=== PATIENT | female | born 1970 | race Caucasian/White ===

== ENCOUNTER 2017-06-02 19:24 | Emergency (ER) | payer OTHER ==
[~2017-06-02] VITALS: Ht 157.5 cm; Wt 100.0 kg
[2017-06-02] MEDS ORDERED: ALTACE 5MG5 MG PO (19:55)
[2017-06-02] MEDS ORDERED: TOPROL XL 50MG50 MG PO (19:55)
[2017-06-02] MEDS ORDERED: MEDI-FIRST ASP325 MG PO (19:56)
[2017-06-02] MEDS ORDERED: ANTIVERT12.5 M1 PO (19:56)
[2017-06-02] MEDS ORDERED: FISH OIL 1,001000 MG PO (19:56)
[2017-06-02] MEDS ORDERED: LIPITOR 40MG TA40 MG PO (19:57)
[2017-06-02] MEDS ORDERED: PANTOPRAZOLE SO40 MG PO (19:57)
[2017-06-02] MEDS ORDERED: D-1000 185 MG-11 TAB PO (19:57)
[2017-06-02] MEDS ORDERED: MULTIVITAMIN1 SGL PO (19:57)
[2017-06-02 21:02] VITALS: BP 142/93
== END 2017-06-02 21:02 | disposition home or self-care (01) ==
LOC: ED 19:24
DX: S60.222A Contusion of left hand, initial encounter (principal); S80.12XA Contusion of left lower leg, initial encounter; S30.0XXA Contusion of lower back and pelvis, initial encounter; V49.88XA Car occupant (driver) (passenger) injured in other specified transport accidents, initial encounter; Y92.415 Exit ramp or entrance ramp of street or highway as the place of occurrence of the external cause; Y93.89 Activity, other specified; I25.2 Old myocardial infarction; I25.10 Atherosclerotic heart disease of native coronary artery without angina pectoris; I10 Essential (primary) hypertension; Z95.5 Presence of coronary angioplasty implant and graft; K21.9 Gastro-esophageal reflux disease without esophagitis; E78.00 Pure hypercholesterolemia, unspecified
CPT/HCPCS: J1885